=== PATIENT | female | born 1985 | race Caucasian/White ===

== ENCOUNTER 2017-05-06 15:03 | Emergency (ER) | payer OTHER ==
[~2017-05-06] VITALS: Ht 180.3 cm; Wt 90.7 kg
[~2017-05-06 15:03] MED LIST: FLEXERIL10 MG PO; MOTRIN800 MG PO; NKHM; PERCOCET 325 MG1 TA5 PO; VICODIN 5/500 505 MG PO
[2017-05-06] MEDS ORDERED: ZYRTEC10 MG PO (16:58)
[2017-05-06] MEDS ORDERED: AMOXICILLIN500 M2 PO (16:58)
== END 2017-05-06 17:57 | disposition home or self-care (01) ==
LOC: ED 15:03
DX: J01.90 Acute sinusitis, unspecified (principal)